=== PATIENT | male | born 1985 | race Two or more races ===

== ENCOUNTER 2024-05-02 11:11 | Emergency (ER) | payer MEDICAID, SELFPAY ==
[2024-05-02 11:20] VITALS: BP 142/88; PULSE 88; RESP 19; TEMP 36.7; O2SAT 99; BMI 29.1
--- NOTE | 2024-05-02 11:21 | PD.EDRME ---
Rapid Medical Screening Exam RME Arrival date/time: 05/02/24 11:11 38-year-old male everyday heroin user presents to the emergency department today stating that he used fentanyl today and reports he overdosed patient reports that his family member had to give him Narcan. Currently patient GCS of 15 answering all questions appropriately Chief Complaint: Overdose
--- NOTE | 2024-05-02 12:01 | PC.NURSE ---
CALLED PT TO CONFIRM THAT HE LEFT AND DID NOT WANT TO BE SEEN AND EDUCATED ON IMPORTANCE OF BEING SEEN. PT STATES HE UNDERSTANDS AND WILL COME BACK IN IF HE NEEDS HELP.
== END 2024-05-02 12:03 | disposition left against medical advice (07) ==
PROVIDERS: Emergency Provider Emergency Medicine; PCP Physician Assistant
DX: T40.411A Poisoning by fentanyl or fentanyl analogs, accidental (unintentional), initial encounter (principal); Z53.29 Procedure and treatment not carried out because of patient's decision for other reasons
CPT/HCPCS: 80053; 80307; 80320; 85025; 99281; G0480